=== PATIENT | female | born 1935 | race Caucasian/White ===

== ENCOUNTER 2018-07-14 18:31 | Emergency (ER) | payer OTHER ==
[~2018-07-14] VITALS: Ht 157.5 cm; Wt 48.1 kg
[2018-07-14] MEDS ORDERED: LOSARTAN POTASS50 MG (18:41)
[2018-07-15] MEDS ORDERED: IRON1TAB4 PO (06:26)
== END 2018-07-15 08:25 | disposition home or self-care (01) ==
LOC: ER 18:31
DX: K62.5 Hemorrhage of anus and rectum (principal); R19.7 Diarrhea, unspecified; R10.32 Left lower quadrant pain

== ENCOUNTER 2018-09-07 19:07 | Emergency (ER) | payer OTHER ==
[~2018-09-07] VITALS: Ht 152.4 cm; Wt 63.5 kg
[~2018-09-07 19:07] MED LIST: IRON1TAB4 PO; LOSARTAN POTASS50 MG
[2018-09-07] MEDS ORDERED: NORVASC5 MG (19:20)
[2018-09-07] MEDS ORDERED: NEXIUM20 M1 (19:21)
== END 2018-09-07 23:30 | disposition home or self-care (01) ==
LOC: ER 19:07
DX: K29.60 Other gastritis without bleeding (principal)